=== PATIENT | male | born 1970 | race Caucasian/White ===

== ENCOUNTER 2017-10-03 13:59 | Outpatient (REF) | payer OTHER, SELFPAY ==
[2017-10-03 19:16] LABS: ALT 77 U/L (12-78); Cholesterol 149 mg/dL (50-200); HDL Cholesterol 48 mg/dL (40-60); LDL CHOLESTEROL 88 mg/dL (<100); Triglyceride 94 mg/dL (30-150)
== END 2017-10-03 14:00 ==
LOC: NCHCN 13:59
PROVIDERS: PCP Family Medicine; Visit Provider Family Medicine
DX: E78.5 Hyperlipidemia, unspecified (principal)
CPT/HCPCS: 80061; 83721; 84460

== ENCOUNTER 2020-10-20 12:11 | Outpatient (REF) | payer OTHER, SELFPAY ==
[2020-10-20 13:42] LABS: ALT 60 U/L (16-63); AST 22 U/L (15-37); Albumin 4.4 g/dL (3.4-5.0); Alkaline Phosphatase 65 U/L (46-116); Anion Gap 7.1 mmol/L (3-11); BUN 19 mg/dL (7-18); Bilirubin, Total 1.4 mg/dL (0.2-1.0); CO2 30.9 mmol/L (21.0-32.0); CREATININE 0.9 mg/dL (0.70-1.30); Calculated LDL 92 mg/dL (<100); Chloride 107 mmol/L (98-107); Cholesterol 156 mg/dL (<200); Glucose 88 mg/dL (74-106); HDL Cholesterol 49 mg/dL (40-60); Potassium 4.4 mmol/L (3.5-5.1); Sodium 145 mmol/L (136-145); Total Protein 7.4 g/dL (6.4-8.2); Triglyceride 78 mg/dL (<150)
[2020-10-20 22:19] LABS: PSA, Screening 1.4 ng/mL (0.0-3.5)
== END 2020-10-20 12:12 | disposition home or self-care (01) ==
LOC: NCHCN 12:11
PROVIDERS: PCP Family Medicine; Visit Provider Family Medicine
DX: E78.5 Hyperlipidemia, unspecified (principal); Z00.00 Encounter for general adult medical examination without abnormal findings
CPT/HCPCS: 80053; 80061; 84153

== ENCOUNTER 2022-12-24 13:52 | Outpatient (REF) | payer OTHER, SELFPAY ==
[2022-12-24 15:59] LABS: ALT 43 U/L (16-63); Calculated LDL 71 mg/dL (<100); Cholesterol 136 mg/dL (<200); HDL Cholesterol 48 mg/dL (40-60); Triglyceride 88 mg/dL (<150)
[2022-12-24 22:50] LABS: PSA, Screening 1.4 ng/mL (<=3.5)
== END 2022-12-24 13:53 | disposition home or self-care (01) ==
LOC: NCHCN 13:52
PROVIDERS: PCP Family Medicine; Visit Provider Family Medicine
DX: Z00.00 Encounter for general adult medical examination without abnormal findings (principal); E78.5 Hyperlipidemia, unspecified
CPT/HCPCS: 80061; 84153; 84460

== ENCOUNTER → 2023-03-04 15:43 | Outpatient (CLI) | payer OTHER, SELFPAY ==
--- NOTE | 2023-03-04 15:00 | DI.RAD_ITS ---
Exam(s) XR KNEE RT 3V AP,LAT,AJ EXAM: XR KNEE RT 3V AP,LAT,AJ CLINICAL HISTORY: persistent pain, post fall, strain, S86.911A. TECHNIQUE: 2D digital imaging was performed. Three views. COMPARISON: No exams were available for comparison FINDINGS: BONES: No acute fracture is present. No bony destructive lesion is seen. JOINTS: The knee is normally aligned. No joint effusion is seen. The joint spaces are maintained. N o significant degenerative changes. SOFT TISSUE: Normal. IMPRESSION: Unremarkable radiographs of the right knee. DATA REPOSITORY: RADIATION DOSE DELIVERED:
== END ==
PROVIDERS: PCP Family Medicine; Visit Provider Nurse Practitioner Family
DX: M25.561 Pain in right knee (principal)
CPT/HCPCS: 73562

== ENCOUNTER 2023-11-10 17:43 | Outpatient (REF) | payer OTHER, SELFPAY ==
[2023-11-10 19:56] LABS: Abs Immature Grans 0.02 10^3/uL (0.0-0.06); Absolute Basophil Count 0.03 10^3/uL (0.0-0.2); Absolute Eosinophil Count 0.16 10^3/uL (0.0-0.7); Absolute Lymphocyte Count 1.44 10^3/uL (1.2-3.4); Absolute Monocyte Count 0.43 10^3/uL (0.1-0.8); Absolute Neutrophil Count 3.06 10^3/uL (1.2-6.7); Basophils % 0.6 %; Eosinophils % 3.1 %; HCT 43.7 % (40.0-50.0); HGB 15.3 g/dL (13.5-17.5); Immature Grans % 0.4 %; MCV 91 fL (80-95); Monocytes % 8.4 %; Neutrophils % 59.5 %; Platelet Count 149 10^3/uL (130-400); RBC 4.78 10^6/uL (4.36-5.78); RDW 12.1 % (11.8-14.1); RDW-SD 40.6 fL; WBC 5.14 10^3/uL (4.4-10.8)
== END 2023-11-10 17:44 | disposition home or self-care (01) ==
LOC: NCHCN 17:43
PROVIDERS: PCP Family Medicine; Visit Provider Nurse Practitioner Family
DX: K92.9 Disease of digestive system, unspecified (principal)
CPT/HCPCS: 85025

== ENCOUNTER 2023-11-11 11:59 | Outpatient (REF) | payer OTHER, SELFPAY ==
[2023-11-12 00:35] LABS: Campylobacter PCR Negative (Negative); Salmonella PCR Negative (Negative); Shiga Toxin PCR Negative (Negative); Shigella/Enteroinvasive Ecoli Negative (Negative)
== END 2023-11-11 12:00 | disposition home or self-care (01) ==
LOC: NCHCN 11:59
PROVIDERS: PCP Family Medicine; Visit Provider Nurse Practitioner Family
DX: K92.9 Disease of digestive system, unspecified (principal)
CPT/HCPCS: 87505; 87177

== ENCOUNTER 2023-12-23 16:16 | Outpatient (REF) | payer OTHER, SELFPAY ==
--- NOTE | 2023-12-23 09:30 | SKI_PTH ---
PATIENT: Jcarlos Leong LOC: [facility]#:[id number] AGE/SX: 53/M ROOM: RE12/23/[address]: Laura Riley V : 1970 BED: DIS: 12/23/2023 SPEC #: [id number] RECD: 12/24/23 12:22 STATUS: TENZIN COLLINS #: [id number] ADDY: 12/23/23 09:[address]: Laura Riley V DEPT: Surgical Specimen RECD BY: Velma Cho Tissues: 1 - SKIN BIOPSY(SHAVE/PUNCH) Procedures: SKIN LEVEL 4 Comments: [id number]
== END 2023-12-23 16:17 | disposition home or self-care (01) ==
LOC: NCHCN 16:16
PROVIDERS: PCP Family Medicine; Visit Provider Family Medicine
DX: L98.8 Other specified disorders of the skin and subcutaneous tissue (principal)
CPT/HCPCS: 88305

== ENCOUNTER 2024-06-25 21:10 | Outpatient (REF) | payer OTHER, SELFPAY ==
[2024-06-25 19:45] LABS: ALT 39 U/L (16-63); AST 20 U/L (15-37); Albumin 4.3 g/dL (3.4-5.0); Alkaline Phosphatase 61 U/L (46-116); Anion Gap 7.9 mmol/L (3-11); BUN 17 mg/dL (7-18); Bilirubin, Total 1.8 mg/dL (0.2-1.0); CO2 29.1 mmol/L (21.0-32.0); CREATININE 0.9 mg/dL (0.70-1.30); Calcium 9.3 mg/dL (8.5-10.1); Calculated LDL 68 mg/dL (<100); Chloride 108 mmol/L (98-107); Cholesterol 140 mg/dL (<200); Estimated GFR 100.86 (mL/min/1.73m2); Glucose 94 mg/dL (74-106); HDL Cholesterol 51 mg/dL (>or=40); Potassium 4.2 mmol/L (3.5-5.1); Sodium 145 mmol/L (136-145); Total Protein 7.1 g/dL (6.4-8.2); Triglyceride 107 mg/dL (<150)
[2024-06-28 10:03] LABS: PSA, Screening 2.6 ng/mL (<=3.5)
[2024-06-28 10:15] LABS: Hepatitis C Ab w Rflx HCV PCR Negative (Negative)
[2024-06-30 08:51] LABS: Misc Referral (UVM) See Comments
== END 2024-06-25 21:11 | disposition home or self-care (01) ==
LOC: NCHCN 21:10
PROVIDERS: PCP Family Medicine; Visit Provider Family Medicine
DX: E80.6 Other disorders of bilirubin metabolism (principal); Z00.00 Encounter for general adult medical examination without abnormal findings; E78.5 Hyperlipidemia, unspecified; Z12.5 Encounter for screening for malignant neoplasm of prostate
CPT/HCPCS: 80053; 80061; 82248; 84153; 86803